=== PATIENT | male | born 1950 | race Asian ===

== ENCOUNTER 2016-09-07 09:14 | Outpatient (CLI) | payer BC ==
[~2016-09-07] VITALS: Ht 170.2 cm; Wt 67.3 kg
[~2016-09-07 09:14] MED LIST: ASCO500C7 PO; CHOL100016 PO; GLUC1CAP PO; MAGN71.5 PO; MULT-860 PO; NIAC1000 PO; OCUVITE PO; OLME40TA14 PO; [UNRECOGNIZED DRUG - CODE] PO
[2016-09-07 09:19] VITALS: BP 134/77; PULSE 73; RESP 16; Ht 170.2 cm; Wt 67.3 kg
--- NOTE | 2016-09-07 09:52 | PN ---
Date/Time of Note Date/Time of Note DATE: 09/07/16 TIME: 09:43 Assessment/Plan Assessment/Plan Assessment/Plan [facility] Outpatient Progress Note Date of Service: 09/08/2015 Today's Assessment & Plan: Overall has remained stable and doing well without any symptoms and with no change in his NE tumor of the pancreas (CT abd/pelvis 08/26/16 reported no visualization of the lesion, and my review shows a stable 11 mm nodule in the caudal portion of the body of the pancreas). With above assessment, I've recommended the following for today: 1. Endoscopic ultrasound of the pancreas Mar 2017 2. MDTB presentation after above 3. Follow with us after above Thank you again for your great care of this very pleasant gentleman and his wonderful family. If there are any questions, please feel free to call me at [phone]. TOTAL VISIT TIME: 20 minutes of which more than half was spent in [id number] discussion with the patient as well as coordination of care between multiple physicians and providers. Disclaimer: Inadvertent spelling and grammatical errors are likely due to EHR/ dictation software use and do not reflect on the quality of delivered patient care. Also, please note that the electronic time recorded on this node does not necessarily reflect the actual time of the visit. 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 Patient had a series of images including MRIs and CT scans of the abdomen and pelvis over the last few months that indicated presence of a 1.2 cm enhancing mass that was consistent with a neuroendocrine type lesion. Possibility of adenocarcinoma of the pancreas was small given image findings. Initial EUS 11/09/15 showed NE tumor. This lesion also did not appear to be hormone producing given patient's lack of obvious other symptoms. Due to its small size, we elected to follow the patient with close surveillance. EUS showed stable disease. CT abd/pelvis 08/26/16 reported no visualization of the lesion, and my review shows a stable 11 mm nodule in the caudal portion of the body of the pancreas. Comorbidities: 1. Primary malignant neoplasm of prostate 2. Hyperlipidemia 3. Gouty arthropathy 4. Essential hypertension 5. Acute bronchitis 6. Pandemic influenza A (H1 N1) 2008 7. Gastroesophageal reflux disease 8. Ankylosis of joint of hand 9. Knee pain 10. Dyspnea 11. Appendectomy 12. Prostatectomy July 2014 13. Bilateral hernia repairs May 2015 Subjective: No major events or complaints; no abd pain and not on any pain medications; no n /v/d; no sob or cp; + flatus; + BM and normal; + activity Objective: Vitals: See below Exam: GENERAL: On exam, the patient was sitting up in a chair and appeared to be comfortable and in no acute distress. ABDOMEN: Soft, nontender and nondistended. There are no peritoneal signs or guarding. SKIN: Skin appears to be pink and feels warm to touch. NEUROLOGIC: Patient is awake, alert, and follows commands appropriately. NICOLAS STEEL M.D. Sep 07, 2016 09:52
== END 2016-09-07 16:28 | disposition home or self-care (01) ==
LOC: HPC 09:14
PROVIDERS: ATTEND Transplant Surgery
DX: C61 Malignant neoplasm of prostate (principal); Z95.0 Presence of cardiac pacemaker; E78.5 Hyperlipidemia, unspecified; M10.9 Gout, unspecified; I10 Essential (primary) hypertension; J20.9 Acute bronchitis, unspecified; K21.9 Gastro-esophageal reflux disease without esophagitis; M24 Other specific joint derangements; M25.569 Pain in unspecified knee; R06.00 Dyspnea, unspecified; Z90.49 Acquired absence of other specified parts of digestive tract; Z90.79 Acquired absence of other genital organ(s)
CPT/HCPCS: G0463